=== PATIENT | female | born 1985 | race Caucasian/White ===

== ENCOUNTER 2021-04-14 13:21 | Emergency (ER) | payer MEDICAID ==
[~2021-04-14] VITALS: Ht 157.5 cm; Wt 91.0 kg
[~2021-04-14 13:21] MED LIST: DENIES; METH5TAB2 PO
--- NOTE | 2021-04-14 13:24 | NUR ---
DR. VINCENT BEDSIDE. BIB [facility] D/T ABD PAIN X3 WEEK, N/V/D AND DIZZINESS X2 DAYS. 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 SHE REPORTED THAT SHE PREVIOUSLY WENT TO [facility] WHO G[facility] AND HAD SLIGHT IMPROVEMENT. SHE REPORTS THAT STARTED FEELING BAD AGAIN AND THAT IS WHEN SHE DECIDED TO COME IN. HX OF DM, AND METH USE, CURRENTLY ON METHADONE.
--- NOTE | 2021-04-14 13:37 | NUR ---
XRAY AT BS
[2021-04-14] MEDS ORDERED: ONDANSETRON 2MG/ML, 2ML ONE (13:42)
[2021-04-14] MEDS ORDERED: MAALOX/HYOSCYAMINE/LIDOCAINE 45 ML BTL ONE (13:42)
[2021-04-14] MEDS ORDERED: FAMOTIDINE 20 MG/2 ML ONE (13:43)
--- NOTE | 2021-04-14 13:48 | NUR ---
PT AMBULATORY TO BR WITH UPRIGHT, STEADY GAIT
[2021-04-14] MEDS ORDERED: ONDANSETRON 2MG/ML, 2ML IVPush ONE (14:00)
[2021-04-14] MEDS ORDERED: SODIUM CHLORIDE 0.9% 1,000ML IVBOLUS ONE (14:00)
[2021-04-14] MEDS ORDERED: FAMOTIDINE 20 MG/2 ML IVPush ONE (14:00)
[2021-04-14] MEDS ORDERED: SODIUM CHLORIDE FLUSH 10ML SYR IVF ONE (14:00)
[2021-04-14] MEDS ORDERED: MAALOX/HYOSCYAMINE/LIDOCAINE 45 ML BTL PO ONE (14:00)
[2021-04-14 14:16] LABS: BASOPHILS % (AUTO) 1 % (0-1); EOSINOPHILS % (AUTO) 1 % (1-7); LYMPHOCYTES % (AUTO) 27 % (22-44); MEAN CORPUSCULAR HEMOGLOBIN 30.2 pg (27.0-34.8); MEAN CORPUSCULAR HGB CONC 32.9 g/dL (32.4-35.8); MEAN PLATELET VOLUME 7.6 fL (7.4-10.4); MONOCYTES % (AUTO) 3 % (2-9); NEUTROPHILS % (AUTO) 69 % (42-75); PLATELET COUNT 271 x10^3/uL (130-400); RED BLOOD COUNT 4.76 x10^6/uL (3.82-5.3); RED CELL DISTRIBUTION WIDTH 13.7 % (9.6-15.2)
[2021-04-14 14:28] LABS: ALBUMIN 3.4 g/dL (3.4-5.0); ANION GAP 4 mmol/L (5-15); CALCIUM 8.8 mg/dL (8.5-10.1); CHLORIDE 106 mmol/L (98-107)
[2021-04-14 14:31] LABS: ALANINE AMINOTRANSFERASE 32 U/L (12-78); ALKALINE PHOSPHATASE 63 U/L (45-117); BILIRUBIN,TOTAL 0.2 mg/dL (0.2-1.0); CREATININE 0.67 mg/dL (0.55-1.02); TOTAL PROTEIN 8.2 g/dL (6.4-8.2)
[2021-04-14 14:35] LABS: MD NO
--- NOTE | 2021-04-14 14:44 | NUR ---
PT VSS. NS RUNNING SLOWLY D/T IV SIZE. REVIEWED D/C PAPERWORK WITH PT AND SHE STATES SHE IS HERE FOR SINUS MORE THAN HER STOMACHE AND IS ASKING FOR ABX. WILL UPDATE MD. CALL LIGHT WITHIN LIMIT, MELODY SCHAFFER.
--- NOTE | 2021-04-14 15:18 | NUR ---
PT SAW MD, RECEIVING ABX FOR SINUS. PT VERBALIZE UNDERSTANDING OF D/C INSTRUCTION, MEDICATION AND FOLLOW UP. PT AMBULATORY, STEADY GAIT.
[2021-04-14 15:38] VITALS: BP 126/82
== END 2021-04-14 15:50 | disposition home or self-care (01) ==
LOC: ED 15:30
DX: K29.00 Acute gastritis without bleeding (principal); R11.2 Nausea with vomiting, unspecified; E86.0 Dehydration
CPT/HCPCS: 36415; 71045; 80053; 83690; 85025; 96361; 96374; 96375; 99284; J2405; J7030

== ENCOUNTER 2021-08-18 18:21 | Emergency (ER) | payer MEDICAID ==
[~2021-08-18] VITALS: Ht 157.5 cm; Wt 90.1 kg
[~2021-08-18 18:21] MED LIST changes: +METH-648 PO; -METH5TAB2 PO
[2021-08-18 19:44] LABS: BASOPHILS % (AUTO) 1 % (0-1); EOSINOPHILS % (AUTO) 0 % (1-7); LYMPHOCYTES % (AUTO) 20 % (22-44); MEAN CORPUSCULAR HEMOGLOBIN 29.8 pg (27.0-34.8); MEAN CORPUSCULAR HGB CONC 33.9 g/dL (32.4-35.8); MEAN PLATELET VOLUME 7.3 fL (7.4-10.4); MONOCYTES % (AUTO) 3 % (2-9); NEUTROPHILS % (AUTO) 77 % (42-75); PLATELET COUNT 281 x10^3/uL (130-400); RED BLOOD COUNT 5.05 x10^6/uL (3.82-5.3)
[2021-08-18 19:57] LABS: ALANINE AMINOTRANSFERASE 35 U/L (12-78); ALBUMIN 3.5 g/dL (3.4-5.0); ANION GAP 9 mmol/L (5-15); CALCIUM 8.7 mg/dL (8.5-10.1); CHLORIDE 103 mmol/L (98-107)
[2021-08-18 20:02] LABS: ALKALINE PHOSPHATASE 55 U/L (45-117); BILIRUBIN,TOTAL 0.5 mg/dL (0.2-1.0); CREATININE 0.73 mg/dL (0.55-1.02); TOTAL PROTEIN 8.6 g/dL (6.4-8.2)
[2021-08-18 22:28] VITALS: BP 174/90
--- NOTE | 2021-08-18 22:28 | NUR ---
SECTION WEAVER: PT PULLED BACK INTO TRIAGE FOR A VITAL SIGN RECHECK, TEARING IN TRIAGE, BUT NO CHANGES IN CONDITION, WCTM. EKG DONE
[2021-08-18 22:40] LABS: MICROSCOPIC NOT IND
[2021-08-18] MEDS ORDERED: METOCLOPRAMIDE 1 MG/1 ML ORAL SOL PO ONE (23:30)
[2021-08-18] MEDS ORDERED: DIPHENHYDRAMINE 25 MG CAPSULE PO ONE (23:30)
[2021-08-18] MEDS ORDERED: KETOROLAC 30 MG/1 ML IM ONE (23:30)
[2021-08-18] MEDS ORDERED: KETOROLAC 30 MG/1 ML ONE ×2 (23:30→23:33)
[2021-08-18] MEDS ORDERED: DIPHENHYDRAMINE 25 MG CAPSULE ONE (23:31)
--- NOTE | 2021-08-18 23:47 | NUR ---
RN ATTEMPTED TO MEDICATE PATIENT FOR PT COMFORT. PT BECAME AGGITATED WITH RN AFTER MEDICATION DESCRIPTION STATING "YOU GUYS ARE JUST BLOWING ME OFF AND NOT HELPING ME". RN EXPLAINED THAT WE ARE ATTEMPTING TO HELP HER AND THAT THESE MEDICATIONS ARE THE TREATMENT TO RELIEVE HER SYMPTOMS. PT STATING THAT SHE IS CONCERNED THAT TORADOL CAUSES SEIZURES AND THAT SHE NEEDS FLUIDS TO FIX WHAT IS GOING ON. RN EXPLAINED THAT THE ERP DID NOT ORDER FLUIDS BECAUSE IT WAS NOT INDICATED AT THIS TIME. PT BECAME INCREASINGLY AGGITATED WITH RN. STOPPER MAKER NOTIFIED AND WENT TO DISCUSS WITH PT, ERP AWARE WELL. NO NEW ORDERS AT THIS TIME. WCTM.
--- NOTE | 2021-08-18 23:57 | NUR ---
PATIENT CLEARED FOR DISCHARGE. NO ACUTE DISTRESS RELATED TO MEDICATIONS. VERBALIZED UNDERSTANDING OF SELF CARE AND FOLLOW UP CARE AT HOME.
== END 2021-08-18 23:58 | disposition home or self-care (01) ==
LOC: ED 18:31
DX: J06.9 Acute upper respiratory infection, unspecified (principal); R10.13 Epigastric pain; R11.2 Nausea with vomiting, unspecified; E11.9 Type 2 diabetes mellitus without complications; Z20.822 Contact with and (suspected) exposure to COVID-19
CPT/HCPCS: 36415; 71045; 80053; 81003; 83690; 84703; 85025; 93005; 96372; 99285; J1885; Q0163; U0003; U0005